=== PATIENT | female | born 1980 | race Caucasian/White ===

== ENCOUNTER 2018-11-02 17:44 | Emergency (ER) | payer BC ==
[~2018-11-02] VITALS: Ht 167.6 cm; Wt 63.5 kg
[2018-11-02] MEDS ORDERED: BALANCED SALT IRRIG SOLN 15 ML IO ONE (17:45)
[2018-11-02 17:57] VITALS: BP_SYST 124
[2018-11-02 18:56] VITALS: BP_SYST 124
== END 2018-11-02 18:55 | disposition home or self-care (01) ==
LOC: SED 17:44
DX: H57.89 Other specified disorders of eye and adnexa (principal)
CPT/HCPCS: 99281